=== PATIENT | female | born 1995 | race Caucasian/White ===

== ENCOUNTER 2016-10-12 19:12 | Emergency (ER) | payer OTHER ==
[2016-10-12 19:20] VITALS: BP 113/70
--- NOTE | 2016-10-12 20:48 | ED Physician Documentation ---
History of Present Illness - Stated complaint Stated Complaint: NEEDLESTICK - Chief complaint Chief Complaint: Needlestick - History obtained from History obtained from: Patient - History of Present Illness Timing: Today Pain level max: 0 Pain level now: 0 Improved by: nothing Worsened by: nothing - Additonal information Additional information: R index finger with a dialysis needle today at work. Review of Systems Constitutional: denies: Fever Cardiac: denies: Chest pain / pressure Respiratory: denies: Cough GI: denies: Nausea, Vomiting, Diarrhea : denies: Now EGA Musculoskeletal: denies: Neck pain, Back pain Neurologic: denies: Headache PD PAST MEDICAL HISTORY - Past Medical History Past Medical History: No - Past Surgical History Past Surgical History: No - Present Medications Home Medications: Ambulatory Orders Medication Instructions Recorded Confirmed No Known Home Medications [No 10/12/16 10/12/16 Known Home Medications] - Allergies Allergies/Adverse Reactions: Allergies Allergy/AdvReac Type Severity Reaction Status Date / Time No Known Drug Allergies Allergy Verified 10/12/16 19:20 - Living Situation Living Arrangement: reports: At home PD ED PE NORMAL - Vitals Vital signs reviewed: Yes - General General: Alert and oriented X 3, No acute distress - Derm Derm: Warm and dry - Extremities Extremities: Other (R index finger - small needle puncture. No bleeding) - Neuro Neuro: Alert and oriented X 3 Results - Vitals Vitals: Vital Signs - 24 hr 10/12/16 19:17 Temperature 36.9 C Heart Rate 86 Respiratory 16 Rate Blood Pressure 113/70 O2 Saturation 100 - Labs Labs: Laboratory Tests 10/12/16 10/12/16 20:56 20:56 Serum HCG, Qual NEGATIVE HIV 1&2 Antibody Rapid NEGATIVE PD MEDICAL DECISION MAKING - ED course Complexity details: considered differential, d/w patient ED course: Needlestick exposure at work today. Patient was low risk for hepatitis C, HIV. Patient declines prophylaxis. Baseline labs are drawn and will have her follow-up with her doctor for further evaluation. Patient counseled regarding signs and symptoms for which I believe and urgent re-evaluation would be necessary. Patient with good understanding of and agreement to plan and is comfortable going home at this time This document was made in part using voice recognition software. While efforts are made to proofread this document, sound alike and grammatical errors may occur. Departure - Departure Disposition: 01 Home, Self Care Clinical Impression: Needlestick injury accident Qualifiers: Encounter type: initial encounter Qualified Code(s): W27.3XXA - Contact with needle (sewing), initial encounter Condition: Good Instructions: ED Body Fluid Exp HC Worker Follow-Up: your,doctor in 1 week [Other] Comments: Your blood was drawn tonight and we will call you if there is a positive result. You need to have your blood redrawn with your doctor at 3 and 6 months. Discharge Date/Time: 10/12/16 21:09
[2016-10-12 21:34] LABS: HIVRAP NEG QC NEGATIVE (Negative); HIVRAP POS QC POSITIVE (Positive)
== END 2016-10-12 21:09 | disposition home or self-care (01) ==
LOC: ED 19:12
DX: S61.230A Puncture wound without foreign body of right index finger without damage to nail, initial encounter (principal); W46.1XXA Contact with contaminated hypodermic needle, initial encounter; Y93.F9 Activity, other caregiving; Y92.89 Other specified places as the place of occurrence of the external cause; Y99.0 Civilian activity done for income or pay
CPT/HCPCS: 36415; 84703; 86703; 86707; 86803; 87389; 99282; 99283